=== PATIENT | male | born 1955 | race Caucasian/White ===

== ENCOUNTER → 2021-07-19 | Outpatient (CLI) | payer MEDICARE ==
[~2021-07-19] MED LIST: HYDR12.58 PO; LIDOCAINE 1% Multi-Dose 20 ML VIAL. INJ ONE; NIFE30TA95 PO; SERT50TA PO; SIMV40TA18 PO
--- NOTE | 2021-07-19 15:41 | RAD ---
EXAMINATION: Ultrasound-guided fine-needle aspiration of right thyroid nodule, 07/19/2021 2:02 PM CLINICAL INDICATION: 3.4 cm right thyroid nodule COMPARISON: Thyroid ultrasound thyroid ultrasound 07/04/2021 at outside facility FINDINGS/TECHNIQUE: The purpose of the procedure, and risks and benefits were explained to the patient. Informed consent was obtained. A timeout was performed. Initial ultrasound images identified the right thyroid nodule. The skin overlying the patient's right was marked, prepped, and draped in standard sterile fashion. Skin and subcutaneous soft tissue were anesthetized with 1% lidocaine. Next, using continuous ultrasound guidance, four 25-gauge fine-needle aspiration samples were obtained of the thyroid nodule and given to the laboratory secretary for analysis. The skin was cleansed and covered with a dressing. The patient tolerated the procedure well and left in stable condition. IMPRESSION: Technically successful, ultrasound-guided fine needle aspiration of right thyroid nodule. Electronically signed by: Mecca Almazan MD (07/19/2021 3:39 PM) [id number]
--- NOTE | 2021-07-26 15:10 | PATHOLOGY ---
Note [facility] Accession Number: [id number] TESTS RESULT FLAG UNITS REF RANGE LAB Clinician Provided Cytology Information No. of containers..01 Other (Miscellaneous) Source: RT INFERIOR THYROID DIAGNOSIS: RT INFERIOR THYROID NEGATIVE FOR MALIGNANT CELLS. BETHESDA CATEGORY II. SPECIMEN CONSISTS OF FEW BENIGN FOLLICULAR CELLS, SCANT COLLOID AND BLOOD. THE PATTERN IS CONSISTENT WITH ADENOMATOID NODULE. ABUNDANT RED BLOOD CELLS ARE PRESENT. COMMENT, SCANT MATERIAL WITH FEW THYROID FOLLICULAR CELLS SOME WITH HURTHLE CELL CHANGES. THE MATERIAL ASPIRATED MAY NOT BE CHIEF TECHNICIAN. SUGGEST CLINICAL CORRELATION AND FOLLOW UP CLINICALLY INDICATED THIS CASE IS ALSO REVIEWED BY DR. VARELA AND ALSO DR. NI SANCHEZ AND THEY AGREE WITH THE ABOVE DIAGNOSIS. Pathologist ICD10: 01 E04.1 Signed out by: Braeden Moran MD, Pathologist NPI- [id number] Performed by: Radha Whiting, Returned Goods Receiving Clerk ([facility]) Gross description: 30ML, LIGHT PINK, CLEAR /LCS 07/20/2021 1647 Local FLAG LEGEND: L-Low Normal,H-High Normal,LL-Alert Low,HH-Alert High <-Panic Low,>-Panic High,A-Abnormal,AA-Critical Abnormal Performed at: [facility] [address] [place] [address] Braeden Moran MD, Specimen Comment: A courtesy copy of this report has been sent to [phone], [phone] Specimen Comment: [id number] Specimen Comment: Report sent to / DR AVILA Performed at: [address], [place], [place] [id number] MD Braeden Moran MD Phone: [phone]
== END | disposition home or self-care (01) ==
LOC: US 14:06
PROVIDERS: ATTEND Family Medicine
DX: E04.1 Nontoxic single thyroid nodule (principal); Z79.899 Other long term (current) drug therapy
CPT/HCPCS: 10005; C1819; J3490; 88173; 88305